=== PATIENT | male | born 1955 | race Caucasian/White ===

== ENCOUNTER 2016-10-18 11:18 | Emergency (ER) | payer MEDICARE, MEDICAID ==
[2016-10-18 12:37] VITALS: BP 155/70
--- NOTE | 2016-10-18 14:06 | UC ---
Throat Pain/Nasal Minh HPI - HPI Summary HPI Summary: 60 year old male with complaints nasal congestion and mild sore throat that started yesterday. Denies headache, sinus pain or pressure, fever, or body aches. States his had the same cold and is using dayquil and nyquil with good relief but he is not sure he can take that due to the medication he takes on a daily basis. He is here for recommendations - History of Current Complaint Chief Complaint: UCRespiratory Stated Complaint: SORE THROAT/COUGH/CONGESTION Time Seen by Provider: 10/18/16 13:51 Hx Obtained From: Patient Onset/Duration: Sudden Onset, Lasting Days - 1, Still Present Severity: Moderate Cough: None Associated Signs & Symptoms: Positive: Dysphagia - mild, Nasal Discharge. Negative: Wheezing, Hoarseness, Sinus Discomfort, Fever, Vomiting - Epiglottits Risk Factors Epiglottis Risk Factors: Negative - Allergies/Home Medications Allergies/Adverse Reactions: Allergies Allergy/AdvReac Type Severity Reaction Status Date / Time Penicillins [PCN] Allergy See Comment Verified 10/18/16 12:37 Home Medications: Home Medications ARIPiprazole TAB* [Abilify TAB*] 5 mg PO DAILY 10/18/16 [History Confirmed ] Benztropine TAB* [Cogentin TAB*] 1 mg PO BEDTIME 10/18/16 [History Confirmed ] Bupropion XL* [Wellbutrin XL *] 150 mg PO DAILY 10/18/16 [History Confirmed ] Calcium Carbonate-Vitamin D [Calcium 600+D] 1 tab PO BID 10/18/16 [History Confirmed 10/18/16] Diltiazem HCl Extended Release [Taztia Xt] 360 mg PO DAILY 10/18/16 [History Confirmed 10/18/16] Enalapril TAB* [Vasotec TAB*] 20 mg PO DAILY 10/18/16 [History Confirmed ] Fluticasone NASAL SPRAY 50MCG* [Flonase NASAL SPRAY 50MCG*] 2 spray BOTH NARES DAILY 10/18/16 [History Confirmed 10/18/16] Levothyroxine TAB* [Synthroid TAB*] 100 mcg PO DAILY 10/18/16 [History Confirmed 10/18/16] Multivitamins/Minerals TAB* [Thera M Plus TAB*] 1 tab PO DAILY 10/18/16 [ History Confirmed 10/18/16] busPIRone TAB* [Buspar TAB*] 10 mg PO QID 10/18/16 [History Confirmed 10/18/16] risperiDONE TAB* [RisperDAL*] 2 mg PO BID 10/18/16 [History Confirmed 10/18/16] PMH/Surg Hx/FS Hx/Imm Hx Previously Healthy: Yes Endocrine History Of: Reports: Thyroid Disease Denies: Diabetes Cardiovascular History Of: Reports: Hypertension Denies: Cardiac Disorders Respiratory History Of: Denies: COPD, Asthma GI/ History Of: Denies: Ulcer - Surgical History Surgical History: None - Family History Known Family History: Positive: Cardiac Disease - brother had first [place] age 42 at 49 of [place] Father [place] early 50's, Hypertension - Social History Occupation: Employed Full-time Lives: With Family Alcohol Use: None Substance Use Type: None Smoking Status (MU): Former Smoker Amount Used/How Often: 1/2 - 1 ppd Length of Time of Smoking/Using Tobacco: smoked age 25 to 53 Have You Smoked in the Last Year: No When Did the Patient Quit Smoking/Using Tobacco: quit 2009 - Immunization History Most Recent Influenza Vaccination: [id number] Review of Systems Constitutional: Negative Skin: Negative Eyes: Negative ENT: Sore Throat, Nasal Discharge Respiratory: Negative Cardiovascular: Negative Gastrointestinal: Negative Genitourinary: Negative Motor: Negative Neurovascular: Negative Musculoskeletal: Negative Neurological: Headache Psychological: Negative All Other Systems Reviewed And Are Negative: Yes Physical Exam Triage Information Reviewed: Yes Appearance: No Pain Distress, Well-Nourished, Ill-Appearing - mild Vital Signs: Initial Vital Signs Temp 97.9 F 10/18/16 12:32 Pulse 70 10/18/16 12:32 Resp 14 10/18/16 12:32 BP 155/70 10/18/16 12:32 Pulse Ox 100 10/18/16 12:32 Vital Signs Reviewed: Yes Eyes: Positive: Conjunctiva Clear. Negative: Discharge ENT: Positive: Pharynx normal, Nasal congestion, Nasal drainage - clear, TMs normal, Other: - No sinus pain or pressure with palpation. Negative: Pharyngeal erythema, Tonsillar swelling Neck: Positive: Supple, Nontender, No Lymphadenopathy Respiratory: Positive: Lungs clear, Normal breath sounds. Negative: Crackles, Wheezing Cardiovascular: Positive: RRR, No Murmur Musculoskeletal: Positive: Strength Intact, ROM Intact, No Edema Neurological: Positive: Alert, Muscle Tone Normal Psychological: Positive: Age Appropriate Behavior - pleasant and cooperative Skin: Negative: rashes, breakdown Throat Pain/Nasal Course/Dx - Differential Dx/Diagnosis Differential Diagnosis/HQI/PQRI: Pharyngitis, URI Provider Diagnoses: Upper Respiratory Infection Discharge - Discharge Plan Condition: Stable Disposition: HOME Patient Education Materials: Upper Respiratory Infection (ED) Referrals: Keo Bose MD [Primary Care Provider] - Additional Instructions: I spoke with the pharmacist at [facility]. He is expecting you and will help you find a decongestant that is safe and effective There are no problems with you taking NyQuil. It may make you more drowsy due to your current medications.
== END 2016-10-18 14:33 | disposition home or self-care (01) ==
LOC: UCCORT 11:18
DX: J06.9 Acute upper respiratory infection, unspecified (principal); R09.81 Nasal congestion; E07.9 Disorder of thyroid, unspecified; I10 Essential (primary) hypertension; Z87.891 Personal history of nicotine dependence; Z88.0 Allergy status to penicillin
CPT/HCPCS: 99202; G0463

== ENCOUNTER 2019-06-09 13:30 | Emergency (ER) | payer MEDICARE, MEDICAID ==
[2019-06-09 14:00] VITALS: BP 122/66
--- NOTE | 2019-06-09 15:28 | UC ---
Ear Complaint HPI - HPI Summary HPI Summary: 63-year-old male presents with complaints of 2 day history of right ear pain. Associated with some decreased hearing in the right ear. Denies fever, chills, ear drainage, or URI symptoms. - History of Current Complaint Chief Complaint: UCEar Stated Complaint: RT EAR COMPLAINT Time Seen by Provider: 06/09/19 15:11 Hx Obtained From: Patient Pain Intensity: 0 - Allergies/Home Medications Allergies/Adverse Reactions: Allergies Allergy/AdvReac Type Severity Reaction Status Date / Time Penicillins Allergy Rash Verified 06/09/19 13:57 Home Medications: Home Medications Chlorthalidone TAB* [Hygroton TAB*] 25 mg PO DAILY 06/09/19 [History Confirmed 06/09/19] PMH/Surg Hx/FS Hx/Imm Hx Endocrine History: Hypothyroidism Cardiovascular History: Hypertension, Atrial Fibrillation Psychological History: Schizophrenia - Surgical History Surgical History: None - Family History Known Family History: Positive: Cardiac Disease - brother had first [place] age 42 at 49 [place] Father [place] early 50's, Hypertension - Social History Occupation: Unemployed, Disabled Lives: With Family Alcohol Use: None Substance Use Type: None Smoking Status (MU): Former Smoker Amount Used/How Often: 1/2 - 1 ppd Length of Time of Smoking/Using Tobacco: smoked age 25 to 53 Have You Smoked in the Last Year: No When Did the Patient Quit Smoking/Using Tobacco: quit 2009 - Immunization History Most Recent Influenza Vaccination: [id number] Review of Systems All Other Systems Reviewed And Are Negative: Yes Constitutional: Negative: Fever, Chills Eyes: Negative: Drainage, Eye Redness ENT: Positive: Ear Ache. Negative: Sore Throat, Nasal Discharge, Sinus Congestion, Sinus Pain/Tenderness Respiratory: Negative: Cough Cardiovascular: Positive: Negative Gastrointestinal: Positive: Negative Genitourinary: Positive: Negative Musculoskeletal: Positive: Negative Neurological: Positive: Negative Is Patient Immunocompromised?: No Physical Exam - Summary Physical Exam Summary: GENERAL APPEARANCE: Well developed, well nourished, alert and cooperative, and appears to be in no acute distress. EYES: Conjunctiva clear. No drainage. EARS: Left external auditory canal and tympanic membranes clear. Right external auditory canal with cerumen impaction. TM not visualized. NOSE: No nasal discharge. THROAT: Pharynx normal. No tonsilar inflammation, swelling, exudate, or lesions. Uvula midline. NECK: Neck supple, non-tender without lymphadenopathy. CARDIAC: Normal S1 and S2. No S3, S4 or murmurs. Rhythm is regular. There is no peripheral edema, cyanosis or pallor. Extremities are warm and well perfused. Capillary refill is less than 2 seconds. Peripheral pulses intact. LUNGS: Clear to auscultation without rales, rhonchi, wheezing or diminished breath sounds. ABDOMEN: Positive bowel sounds. Soft, nondistended, nontender. No guarding or rebound. No masses or hepatosplenomegally. MUSKULOSKELETAL: ROM intact to all extremities. No joint erythema or tenderness. Normal muscular development. Normal gait. SKIN: Skin normal color, texture and turgor with no lesions or eruptions. Triage Information Reviewed: Yes Vital Signs: Initial Vital Signs Temp 98.4 F 06/09/19 13:57 Pulse 66 06/09/19 13:57 Resp 18 06/09/19 13:57 BP 122/66 06/09/19 13:57 Pulse Ox 98 06/09/19 13:57 Vital Signs Reviewed: Yes Ear Complaint Course/Dx - Course Course Of Treatment: 63-year-old male presents with complaints of 2 day history of right ear pain. Associated with some decreased hearing in the right ear. Denies fever, chills, ear drainage, or URI symptoms. Afebrile. Vital signs stable. Patient had a cerumen impaction of the right external auditory canal and TM was not visualized. Remainder of exam was unremarkable. The right ear was irrigated by the RN and a large amount of hard cerumen was removed from the ear. Post irrigation the right external auditory canal was noted to be mildly erythematous and edematous. TM was intact, opaque, with good cone of light. Will start him on hydrocortisoneacetic acid otic drops for the next 7 days to help with irritation and swelling. He is to follow-up with his primary care provider in 3-5 days if symptoms are not improving. Anticipatory guidance and warning symptoms were reviewed with the patient. Verbalizes understanding and agrees with plan of care. - Differential Dx/Diagnosis Differential Diagnosis/HQI/PQRI: Cerumen Impaction, Otitis Externa, Otitis Media , Other - serous otitis Provider Diagnosis: Right ear impacted cerumen Discharge ED - Sign-Out/Discharge Documenting (check all that apply): Patient Departure All imaging exams completed and their final reports reviewed: No Studies - Discharge Plan Condition: Stable Disposition: HOME Prescriptions: Hydrocortisone/Acetic Acid [Hydrocortison-Acetic Acid Soln] 3 drop OT QID 7 Days #1 drops Patient Education Materials: Cerumen Impaction (ED) Referrals: Keo Bose MD [Primary Care Provider] - 3 Days Additional Instructions: Your right ear was impacted with earwax which was successfully removed by irrigation in the clinic today. The ear canal is red and inflamed likely from the cervical impaction. We will start her on some eardrops to help decrease the inflammation. Use hydrocortisoneacetic acid otic drops. Instill 3 drops into the affected ear 4 times a day for 7 days. Follow-up with your primary care provider in 3-5 days if symptoms are not improving. Seek immediate medical attention if you develop a fever greater than 100.5 F, have drainage or blood coming from the ear, loss of hearing, or any worsening of symptoms. - Billing Disposition and Condition Condition: STABLE Disposition: Home
== END 2019-06-09 16:06 | disposition home or self-care (01) ==
LOC: UCCORT 13:30
DX: H61.21 Impacted cerumen, right ear (principal); I10 Essential (primary) hypertension; Z88.0 Allergy status to penicillin; Z87.891 Personal history of nicotine dependence
CPT/HCPCS: 99213; G0463

== ENCOUNTER 2022-05-02 12:46 | Observation (INO) ==
[2022-05-02 13:38] LABS: ABS Basophils 0.1 10^3/ul (0-0.2); ABS Eosinophils 0.7 10^3/ul (0-0.6); ABS Lymphocytes 1.3 10^3/ul (1.0-4.8); ABS Neutrophils 7.8 10^3/ul (1.5-7.7); Eosinophil % 6.4 %; Hematocrit 34 % (42-52); Hemoglobin 11.3 g/dL (14.0-18.0); Lymphocyte % 12.2 %; Mean Corpuscular HGB Conc 33 g/dL (31-36); Mean Corpuscular Hemoglobin 29 pg (27-31); Mean Corpuscular Volume 88 fL (80-94); Mean Platelet Volume 6.9 fL (7.4-10.4); Platelet Count 255 10^3/uL (150-450); Red Blood Count 3.86 10^6 /uL (4.18-5.48); Red Cell Distribution Width 17 % (10-15)
[2022-05-02 14:27] LABS: ALT 18 U/L (7-52); AST 20 U/L (13-39); Acetaminophen < 15 mcg/mL; Albumin 3.5 g/dL (3.2-5.2); Alcohol, S < 13 mg/dL (<13); Alkaline Phosphatase 65 U/L (35-149); Anion Gap 7 mmol/L (2-11); Blood Urea Nitrogen 14 mg/dL (6-24); CO2 Carbon Dioxide 31 mmol/L (22-32); Calcium 8.9 mg/dL (8.6-10.3); Chloride 98 mmol/L (101-111); Globulin 3.4 g/dL (2-4); Glucose 90 mg/dL (70-100); Potassium 4.3 mmol/L (3.5-5.0); Salicylate < 2.50 mg/dL (<30); Sodium 136 mmol/L (135-145); Total Protein 6.9 g/dL (6.4-8.9); eGFR CKD-EPI 95.4 (>60)
[2022-05-02] MEDS ORDERED: Enoxaparin 40 MG/0.4 ML SYR SUBCUT SCH (15:30)
[2022-05-02 15:32] LABS: Urine Appearance Clear; Urine Bilirubin Negative (Negative); Urine Blood Negative (Negative); Urine Color Straw; Urine Glucose Negative (Negative); Urine Ketones Negative (Negative); Urine Nitrite Negative (Negative); Urine Protein Negative (Negative); Urine Specific Gravity 1.015 (1.005-1.030); Urine Urobilinogen 0.2 (Negative) (Negative)
[2022-05-02 15:46] LABS: Urine Benzodiazepine Screen None Detected (None Detect); Urine Cannabinoids Screen None Detected (None Detect); Urine Opiates Screen None Detected (None Detect)
[2022-05-02] MEDS: Fluticasone NASAL SPRAY 50MCG 16 gm SPRAY BTL BOTH NARES SCH (22:25)
[2022-05-03 06:11] LABS: ABS Basophils 0.1 10^3/ul (0-0.2); ABS Eosinophils 0.9 10^3/ul (0-0.6); ABS Lymphocytes 1.6 10^3/ul (1.0-4.8); ABS Monocytes 0.9 10^3/ul (0-0.8); ABS Neutrophils 6.5 10^3/ul (1.5-7.7); Eosinophil % 8.9 %; Hematocrit 36 % (42-52); Lymphocyte % 16.2 %; Mean Corpuscular HGB Conc 33 g/dL (31-36); Mean Corpuscular Hemoglobin 29 pg (27-31); Mean Corpuscular Volume 88 fL (80-94); Mean Platelet Volume 6.9 fL (7.4-10.4); Nucleated Red Blood Cells % 0.1; Platelet Count 258 10^3/uL (150-450); Red Blood Count 4.11 10^6 /uL (4.18-5.48); Red Cell Distribution Width 16 % (10-15)
[2022-05-03 07:11] LABS: Albumin 3.4 g/dL (3.2-5.2); Albumin/Globulin Ratio 1.1 (1-3); Calcium 8.8 mg/dL (8.6-10.3); Globulin 3.2 g/dL (2-4); Potassium 4.4 mmol/L (3.5-5.0); Total Bilirubin 0.3 mg/dL (0.2-1.0); Total Protein 6.6 g/dL (6.4-8.9); eGFR CKD-EPI 90.5 (>60)
[2022-05-03 08:48] LABS: TSH Ultra Thyroid Stim Horm 34.33 mcIU/mL (0.34-5.60)
[2022-05-03] MEDS: Fluticasone NASAL SPRAY 50MCG 16 gm SPRAY BTL BOTH NARES SCH (08:48)
[2022-05-03 13:14] VITALS: BP 128/68
== END 2022-05-03 13:45 | disposition home or self-care (01) ==
LOC: ED 12:46 → EDHOLD 12:46
PROVIDERS: ADMIT Hospitalist; ATTEND Hospitalist